=== PATIENT | female | born 1980 | race Caucasian/White ===

== ENCOUNTER 2017-12-30 00:56 | Inpatient (IN) | payer MEDICAID ==
[~2017-12-30] VITALS: Ht 165.1 cm; Wt 66.2 kg
[2017-12-30 01:01] VITALS: Ht 165.1 cm; Wt 66.2 kg
[2017-12-30 02:47] LABS: CALCIUM 8.9 mg/dL (8.5-10.1); CARBON DIOXIDE 28.1 mmol/L (21-32); CHLORIDE SERUM 107 mmol/L (98-107); CREATININE SERUM 0.7 mg/dL (0.6-1.0); GFR1 > 60 mL/min; GLUCOSE SERUM 106 mg/dL (74-106); POTASSIUM SERUM 3.7 mmol/L (3.5-5.1); SODIUM SERUM 144 mmol/L (136-145)
[2017-12-30 02:52] LABS: ALBUMIN 3.6 g/dL (3.4-5.0); ALKALINE PHOSPHATASE 75 U/L (46-116); ALT/SGPT 33 U/L (14-59); AST/SGOT 23 U/L (15-37); BILIRUBIN TOTAL 0.36 mg/dL (0.20-1.00); TOTAL PROTEIN, SERUM 7.3 g/dL (6.4-8.2)
[2017-12-30 03:18] LABS: BASOPHIL % 1.4 % (0-2); PLATELET COUNT 227 x10^3mcL (130-400); RED CELL DISTRIBUTION WIDTH 12.4 % (11.5-14.5)
[2017-12-30 06:45] VITALS: BP 117/73
[2017-12-30 07:05] LABS: FREE T4 0.96 ng/dL (0.76-1.46); FREE THYROXINE INDEX 2.6 ug/dL (1.4-4.5); T4(THYROXINE) 7.5 ug/dL (4.7-13.3)
[2017-12-30 07:28] LABS: CHOLESTEROL/HDL RATIO 4.7; MAGNESIUM 2.1 mg/dL (1.8-2.4); PHOSPHOROUS 3.6 mg/dL (2.5-4.9)
[2017-12-30 07:36] LABS: T3 TOTAL 1.18 ng/mL
[2017-12-30 08:12] VITALS: BP 117/73
[2017-12-30 09:03] LABS: microscopic required? NO
[2017-12-30 09:30] LABS: AMPHETAMINE QUAL UR NONE DETECTED (NEG <=1000)
[2017-12-30 09:35] LABS: urine erythrocyte NEGATIVE (NEGATIVE)
[2017-12-30 09:47] VITALS: BP 111/71
[2017-12-30 13:09] VITALS: BP 109/63
[2017-12-30 17:31] VITALS: BP 112/68
[2017-12-30 20:27] VITALS: BP 119/65
[2017-12-31 05:30] VITALS: BP 106/66
[2017-12-31 06:31] LABS: CALCIUM 8.7 mg/dL (8.5-10.1); CARBON DIOXIDE 27.6 mmol/L (21-32); CHLORIDE SERUM 106 mmol/L (98-107); CREATININE SERUM 0.5 mg/dL (0.6-1.0); GFR1 > 60 mL/min; GLUCOSE SERUM 84 mg/dL (74-106); MAGNESIUM 1.8 mg/dL (1.8-2.4); PHOSPHOROUS 4.2 mg/dL (2.5-4.9); POTASSIUM SERUM 3.6 mmol/L (3.5-5.1); SODIUM SERUM 142 mmol/L (136-145)
[2017-12-31 06:47] LABS: BASOPHIL % 0.4 % (0-2); PLATELET COUNT 169 x10^3mcL (130-400)
[2017-12-31 09:53] VITALS: BP 113/75
[2017-12-31] MEDS ORDERED: PEPCID20 MG PO (10:36)
[2017-12-31 11:05] VITALS: BP 108/75; BP 113/75
[2017-12-31 12:58] VITALS: BP 108/75
== END 2017-12-31 14:21 | disposition home or self-care (01) | DRG 243 ==
LOC: ED 00:56 → DU 05:38
PROVIDERS: Emergency Medicine; Family Medicine
DX: K21.9 Gastro-esophageal reflux disease without esophagitis (principal); N17.0 Acute kidney failure with tubular necrosis; E78.5 Hyperlipidemia, unspecified; E04.1 Nontoxic single thyroid nodule; D32.0 Benign neoplasm of cerebral meninges; Z68.28 Body mass index [BMI] 28.0-28.9, adult
CPT/HCPCS: 83880; 84439; 85378; 87804; J7030; Q0092